=== PATIENT | female | born 1990 | race Caucasian/White ===

== ENCOUNTER 2022-07-30 08:25 | Day surgery (SDC) | payer OTHER ==
[~2022-07-30] VITALS: Ht 160 cm; Wt 72.6 kg
[2022-07-30] MEDS ORDERED: diphenhydrAMINE 50 MG/ML VIAL ONE (10:51)
[2022-07-30] MEDS ORDERED: MIDAZOLAM 2 MG/2 ML VIAL ONE (10:51)
[2022-07-30] MEDS ORDERED: fentaNYL citrate 0.05 MG/ML VIAL ONE (10:51)
[2022-07-30] MEDS ORDERED: diphenhydrAMINE 50 MG/ML VIAL IVP ONE (12:55)
[2022-07-30] MEDS ORDERED: fentaNYL citrate 0.05 MG/ML VIAL IVP ONE (12:55)
[2022-07-30] MEDS ORDERED: MIDAZOLAM 2 MG/2 ML VIAL IVP ONE (12:55)
== END 2022-07-30 12:30 | disposition home or self-care (01) ==
LOC: MDS 08:25 → MMU 08:26 → MDS 12:30
PROVIDERS: ATTEND Internal Medicine Gastroenterology
DX: K62.5 Hemorrhage of anus and rectum (principal); K29.50 Unspecified chronic gastritis without bleeding; B96.81 Helicobacter pylori [H. pylori] as the cause of diseases classified elsewhere; K31.89 Other diseases of stomach and duodenum; Z20.822 Contact with and (suspected) exposure to COVID-19
CPT/HCPCS: 84703; J1200; J2250; J3010